=== PATIENT | female | born 1955 | race Caucasian/White ===

== ENCOUNTER → 2016-06-21 | Outpatient (CLI) | payer BC ==
[~2016-06-21] MED LIST: CLTP PO; CMDUNK PO; ESCI10TA17 PO; LISI20TA PO; MAGNTAB4 PO; MULT-506 PO; Oxycontin PO; PRCUNK PO; SIMV40TA2 PO
--- NOTE | 2016-06-21 08:03 | DIAGNOSTIC IMAGING REPORT ---
ABDOMEN COMPLETE (US) CLINICAL HISTORY: Right flank pain. COMPARISON STUDY: Right upper quadrant ultrasound July 08, 2015. FINDINGS: The liver is sonographically normal. There are no gallstones. There is no biliary ductal dilatation. The pancreatic body is normal. The head and tail are partially obscured. The size of the spleen is normal. The kidneys are slightly obscured but there is no hydronephrosis. The right kidney measures 9.9 x 4.9 x 5 cm and the left measures 10.2 x 6 x 5.5 cm. No calculi are identified. The caliber of the abdominal aorta is normal. IMPRESSION: 1. No gallstones or biliary ductal dilatation. 2. No hydronephrosis. 3. No significant abnormality within the abdomen by sonography. Electronically signed by: Camden Munguia M.D. 06/21/2016 8:01 AM Dictated Date/Time: 06/21/2016 8:00 AM
[2016-06-21 09:59] LABS: ALT/SGPT 28 U/L (12-78); AST/SGOT 19 U/L (15-37); BLOOD UREA NITROGEN 22 mg/dl (7-18); BUN/CREATININE RATIO 25.4 (10-20); CALCIUM 9.6 mg/dl (8.5-10.1); CARBON DIOXIDE 30 mmol/L (21-32); CHLORIDE 104 mmol/L (98-107); CREATININE 0.86 mg/dl (0.60-1.20); GLUCOSE 88 mg/dl (70-99); POTASSIUM 4.1 mmol/L (3.5-5.1); SODIUM 141 mmol/L (136-145)
[2016-06-21 10:05] LABS: ALKALINE PHOSPHATASE 77 U/L (45-117); CHOLESTEROL 162 mg/dl (0-200); CHOLESTEROL/HDL RATIO 2.8; HDL CHOLESTEROL 58 mg/dl; LDL CHOLESTEROL CALCULATED 81 mg/dl; TRIGLYCERIDES 113 mg/dl (0-150); VERY LOW DENSITY LIPOPROT CALC 23 mg/dl
== END | disposition home or self-care (01) ==
LOC: C.ULTR 07:21
PROVIDERS: ATTEND Family Medicine
DX: R10.9 Unspecified abdominal pain (principal)

== ENCOUNTER → 2016-12-09 | Outpatient (CLI) | payer BC ==
--- NOTE | 2016-12-10 15:22 | MAMMOGRAPHY REPORT ---
BILATERAL DIGITAL SCREENING MAMMOGRAM TOMOSYNTHESIS WITH CAD: 12/09/2016 TECHNIQUE: Breast tomosynthesis in addition to standard 2D mammography was performed. Current study was also evaluated with a Computer Aided Detection (CAD) system. COMPARISON: Comparison is made to exams dated: 12/09/2015 mammogram, 12/05/2014 mammogram, 4 mammogram, 11/29/2011 mammogram, and 11/27/2010 mammogram - [facility]. BREAST COMPOSITION: The tissue of both breasts is almost entirely fatty. FINDINGS: No suspicious masses, calcifications, or areas of architectural distortion are noted in ei ther breast. There has been no significant interval change compared to prior exams. IMPRESSION: ACR BI-RADS CATEGORY 1: NEGATIVE There is no mammographic evidence of malignancy. A 1 year screening mammogram is recommended. The pa tient will receive written notification of the results. Approximately 10% of breast cancers are not detected with mammography. A negative mammographic report should not delay biopsy if a clinically suggestive mass is present. Lucy León M.D. ah/:12/09/2016 16:31:31 Research Geologist: Sherice FREEMAN(Yamileth)(M), [facility] letter sent: Normal 1/2 BI-RADS Code: ACR BI-RADS Category 1: Negative
== END | disposition home or self-care (01) ==
LOC: C.MAMM 16:09
PROVIDERS: ATTEND Obstetrics & Gynecology
DX: Z12.31 Encounter for screening mammogram for malignant neoplasm of breast (principal)

== ENCOUNTER → 2017-03-05 | Outpatient (CLI) | payer OTHER ==
--- NOTE | 2017-03-05 09:51 | DIAGNOSTIC IMAGING REPORT ---
LEFT FOOT 3 VIEWS CLINICAL HISTORY: Left foot pain. FINDINGS: 3 views of the left foot are obtained. No prior studies are available for comparison at the time of dictation. The skeletal structures are osteopenic. No fracture is seen. Mild arthritic change is present at the first metatarsophalangeal joint. Mild to moderate arthritic change is seen at the tarsometatarsal joints. There is no radiographic evidence of Lisfranc injury. A large enthesophyte is seen at the base of the fifth metatarsal. Degenerative spurring is seen along the dorsal aspect of the tarsal bones. A large plantar calcaneal enthesophyte is identified. Mild soft tissue edema is present in the foot and around the ankle. IMPRESSION: 1. Soft tissue swelling with no acute bony abnormality seen in the left foot. 2. Osteopenia, arthritic change, and large heel spur as above. Electronically signed by: Harris Maza M.D. 03/05/2017 9:50 AM Dictated Date/Time: 03/05/2017 9:48 AM
[2017-03-05 10:49] LABS: BASO % 0.6 %; BASO ABS # 0.05 K/uL (0-0.2); EOS ABS # 0.32 K/uL (0-0.5); HEMATOCRIT 42.1 % (37-47); HEMOGLOBIN 14.2 g/dL (12.0-16.0); IG# 0.01 K/uL (0.00-0.02); LYMPH % 21.6 %; LYMPH ABS # 1.71 K/uL (1.2-3.4); MEAN CELL VOLUME 91.9 fL (80-100); MEAN CORPUSCULAR HGB CONC 33.7 g/dl (32-36); MEAN PLATELET VOLUME 10.1 fL (7.4-10.4); MONO % 7.1 %; MONO ABS # 0.56 K/uL (0.11-0.59); NEUT % 66.6 %; NEUT ABS # 5.28 K/uL (1.4-6.5); PLATELET COUNT 282 K/uL (130-400); RED CELL DISTRIBUTION WIDTH CV 13.3 % (11.5-14.5); RED CELL DISTRIBUTION WIDTH SD 44.3 fL (36.4-46.3); WHITE BLOOD COUNT 7.93 K/uL (4.8-10.8)
[2017-03-05 10:59] LABS: URIC ACID 6.2 mg/dl (2.6-7.2)
== END | disposition home or self-care (01) ==
LOC: C.RAD1850 09:28
PROVIDERS: ATTEND Nurse Practitioner Family
DX: M79.672 Pain in left foot (principal)